=== PATIENT | female | born 1980 | race African-American/Black ===

== ENCOUNTER 2017-10-19 03:10 | Emergency (ER) | payer MEDICAID ==
[~2017-10-19] VITALS: Ht 160 cm; Wt 99.1 kg
[2017-10-19 03:15] VITALS: BP 125/87
--- NOTE | 2017-10-19 03:20 | NUR ---
PT.AMBULATED TO ER BED 11
--- NOTE | 2017-10-19 03:24 | NUR ---
Dr. Brennan evaluating patient at bedside.
--- NOTE | 2017-10-19 03:25 | NUR ---
PATIENT IS A 36 Y/O FEMALE WHO PRESENTS TO THE ED C/O SHAKINESS. PT STATES THAT SHE TOOK METH AND MARIJUANA X1 DAY, "FEELS SHAKY." PT DENIES PAIN AT THIS TIME. PT DENIES CP, SOB, N/V/D. PT REPORTS SHAKINESS. PT AAOX4, RR EVEN/UNLABORED, 99% O2 ON RA, LUNG SOUNDS CLEAR BL. PT REPOSITIONED FOR COMFORT, BED IN LOWEST POSITION. ER MD DR. PARNELL NOTIFIED. WILL CONTINUE TO MONITOR.
[2017-10-19] MEDS ORDERED: LORazepam 2 MG/ML VIAL IM ONE (03:35)
[2017-10-19 03:46] LABS: BARBITURATE, URINE NEG. ng/ml (NEG <=200); BENZODIAZEPINE, URINE NEG. ng/mL (NEG <=200); CANNABINOID, URINE NEG. ng/mL (NEG <=50); COCAINE, URINE NEG. ng/mL (NEG <=300); OPIATE, URINE NEG. ng/mL (NEG <=2000); PHENCYCLIDINE SCREEN,URINE NEG. ng/mL (NEG <=25)
[2017-10-19 03:57] LABS: HEMATOCRIT 37.6 % (36-48); HEMOGLOBIN 12.2 g/dL (12.0-16.0); MEAN CORPUSCULAR HEMOGLOBIN 30 pg (27-31); MEAN CORPUSCULAR HGB CONC 33 g/dL (33-37); MEAN CORPUSCULAR VOLUME 90.9 fL (80-94); PLATELET COUNT (AUTO) 302 K/uL (140-450); RED BLOOD CELL COUNT(AUTO) 4.13 MIL/uL (4.20-5.40); RED CELL DISTRIBUTION WIDTH 13.3 % (11.6-13.7); WHITE BLOOD COUNT (AUTO) 5.7 K/uL (4.8-10.8)
[2017-10-19 04:13] LABS: ALBUMIN 3.1 g/dL (3.4-5.0); ANION GAP 9.5 (8-16); CREATININE 0.8 mg/dL (0.6-1.3); POTASSIUM 3.5 mmol/L (3.5-5.1); TOTAL BILIRUBIN 0.2 mg/dL (0.0-1.0)
[2017-10-19 04:14] LABS: EOSINOPHILS % (MANUAL) 7 % (0-4); LYMPHOCYTES % (MANUAL) 48 % (20-46); MONOCYTES % (MANUAL) 9 % (5-12)
[2017-10-19 06:36] VITALS: BP 122/75
--- NOTE | 2017-10-19 06:37 | NUR ---
Patient discharged with v/s stable. Written and verbal after care instructions given and explained. Patient alert, oriented and verbalized understanding of instructions. Wheel Chair Assisted with to car. All questions addressed prior to discharge. ID band removed. Patient advised to follow up with PMD. Rx of XANAX 0.5MG TID/PRN given. Patient educated on indication of medication including possible reaction and side effects. Opportunity to ask questions provided and answered.
== END 2017-10-19 06:37 | disposition home or self-care (01) ==
LOC: MED 03:10
DX: F15.10 Other stimulant abuse, uncomplicated (principal); R03.0 Elevated blood-pressure reading, without diagnosis of hypertension; F17.210 Nicotine dependence, cigarettes, uncomplicated
CPT/HCPCS: 36415; 80053; 80305; 81002; 81025; 82948; 85025; 96372; 99284; J2060